=== PATIENT | female | born 1955 | race Caucasian/White ===

== ENCOUNTER 2017-03-26 11:33 | Emergency (ER) | payer OTHER ==
[2017-03-26 11:34] VITALS: BMI 25.7
[2017-03-26 12:00] VITALS: TEMP 97.9
[2017-03-26] MEDS ORDERED: Sodium Chloride 0.9% 1,000 ML IV SCH (12:45)
[2017-03-26 13:10] LABS: BASO # 0.01 K/mm3 (0.0-2.0); BASO % 0.2 % (0.0-3.0); EOS # 0.2 (0.0-0.7); EOS % 3.1 % (1.5-5.0); GRAN # 2.53 (1.4-6.5); GRAN % 45.4 % (50.0-68.0); HEMOGLOBIN 13.1 g/dL (12.0-16.0); LYMPH # 2.2 (1.2-3.4); LYMPH % 38.7 % (22.0-35.0); MEAN CELL VOLUME 96.6 fl (80.0-105.0); MEAN CORPUSCULAR HEMOGLOBIN 32.2 pg (25.0-35.0); MEAN CORPUSCULAR HGB CONC 33.3 g/dl (31.0-37.0); MEAN PLATELET VOLUME 11.3 fl (7.0-11.0); MONO # 0.7 (0.1-0.6); MONO % 12.6 % (1.0-6.0); RBC 4.07 10^6/uL (3.5-6.1); RED CELL DISTRIBUTION WIDTH 13.4 % (11.5-14.5); WHITE BLOOD COUNT 5.6 10^3/ul (4.5-11.0)
[2017-03-26 13:15] LABS: ALB/GLOB RATIO 1.3 (1.1-1.8); ALBUMIN 4.2 g/dL (3.0-4.8); ALT/SGPT 48 U/L (7-56); AST/SGOT 41 U/L (14-36); BLOOD UREA NITROGEN 20 mg/dL (7-21); CALCIUM 9.5 mg/dL (8.4-10.5); GFR AFRICAN-AMERICAN > 60; GFR NON-AFRICAN AMERICAN > 60
[2017-03-26 13:26] LABS: INR 0.97 (0.93-1.08); PARTIAL THROMBOPLASTIN TIME 25.6 Seconds (25.1-36.5); PROTHROMBIN TIME 11.1 SECONDS (9.4-12.5)
--- NOTE | 2017-03-26 13:52 | ED PDOC ---
Arrival/HPI - General Chief Complaint: GI Problem Time Seen by Provider: 03/26/17 12:32 Historian: Patient - History of Present Illness Narrative History of Present Illness (Text): 03/26/17 12:35 A 62 year old female presents to the emergency department complaining of two episodes of bloody stools this morning and dizziness. Patient saw Dr. Barney three years ago, who stated patient has hemorrhoids and had suppository treatment. Patient never had blood transfusions in the past. Reports abdominal pain but denies any chest pain, shortness of breath urinary symptoms or any other complaints at this time. Symptom Onset: Sudden Symptom Course: Unchanged Activities at Onset: Rest Context: Home Past Medical History - Provider Review Nursing Documentation Reviewed: Yes - Cardiac Hx Cardiac Disorders: Yes - Pulmonary Hx Respiratory Disorders: No - Neurological Hx Neurological Disorder: No Hx Paralysis: No - HEENT Hx HEENT Disorder: No - Renal Hx Renal Disorder: No - Endocrine/Metabolic Hx Endocrine Disorders: No - Hematological/Oncological Hx Blood Disorders: Yes Hx Blood Transfusions: Yes (WITH ECTOPIC 1982) - Musculoskeletal/Rheumatological Hx Musculoskeletal Disorders: No - Gastrointestinal Hx Gastrointestinal Disorders: Yes Hx Gastroesophageal Reflux: Yes - Genitourinary/Gynecological Hx Genitourinary Disorders: No - Psychiatric Hx Psychophysiologic Disorder: No Hx Emotional Abuse: No Hx Physical Abuse: No Hx Substance Use: No - Surgical History Other/Comment: ECTOPIC - Anesthesia Hx Anesthesia Reactions: (VOMITING) - Suicidal Assessment Feels Threatened In Home Enviroment: No Family/Social History - Physician Review Nursing Documentation Reviewed: Yes Family/Social History: No Known Family HX Smoking Status: Never Smoked Hx Alcohol Use: Yes (SOCIAL- WINE) Hx Substance Use: No Allergies/Home Meds Allergies/Adverse Reactions: Allergies No Known Allergies Allergy (Verified 03/26/17 11:53) Home Medications: Home Meds Medication Instructions Recorded Confirmed Cholecalciferol (Vitamin D3) 50,000 units PO WED 01/20/16 03/26/17 [Vitamin D3] Rosuvastatin Calcium [Crestor] 10 mg PO DAILY 01/20/16 03/26/17 Dexlansoprazole [Dexilant] 30 mg PO DAILY 03/26/17 03/26/17 Review of Systems - Physician Review All systems were reviewed & negative as marked: Yes - Review of Systems Respiratory: absent: SOB Cardiovascular: absent: Chest Pain Gastrointestinal: Abdominal Pain, Stool Changes (bloody stools) Genitourinary Female: absent: Dysuria, Frequency, Hematuria Neurological: Dizziness Physical Exam - Physical Exam Narrative Physical Exam (Text): 03/26/17 13:51 Head: Atraumatic. Normocephalic. Eyes: PERRL. EOMI. Conjunctivae are not pale. ENT: Mucous membranes are moist and intact. Oropharynx is clear and symmetric. Neck: Supple. Full ROM. No JVD. No lymphadenopathy. Cardiovascular: Regular rate. Regular rhythm. No murmurs, rubs, or gallops. Distal pulses are 2+ and symmetric. Pulmonary/Chest: No evidence of respiratory distress. Clear to auscultation bilaterally. No wheezing, rales or rhonchi. Abdominal: mild RUQ abdominal and periumbilical tenderness to palpation Rectal: (scribe Belqes cover stripper present) small external hemorrhoid, nonthrombosed; brown stool, faintly heme positive Back: No CVA tenderness. Extremities: No edema. No cyanosis. No clubbing. Full range of motion in all extremities. No calf tenderness. Skin: Skin is warm and dry. No petechiae. No purpura. Neurological: Alert, awake, and oriented to person, place, time, and situation. Normal speech. Psychiatric: Good eye contact. Normal interaction, affect, and behavior. Vital Signs Reviewed: Yes Vital Signs Temp Pulse Resp BP Pulse Ox 03/26/17 15:01 78 18 128/67 99 03/26/17 11:59 97.9 F 69 16 119/77 98 Temperature: Afebrile Blood Pressure: Normal Pulse: Regular Respiratory Rate: Normal Appearance: Positive for: Well-Appearing, Non-Toxic, Comfortable Pain Distress: None Mental Status: Positive for: Alert and Oriented X 3 Medical Decision Making ED Course and Treatment: 03/26/17 13:51 Impression: A 62 year old female with two episodes of bloody stool, abdominal pain and dizziness. Plan: -- labs -- Pepcid, IV fluids -- Reassess and disposition Progress Notes: No active bleeding noted with serial exams in ED. Hgb unremarkable. Not orthostatic. No pain or discomfort. Stool at home described as BRIGHT, suggests lower gi. As no further bleeding and cv stable with unremarkable Hgb, will d/c with follow -up with her PMD and gi physician for further evaluation. 03/26/17 14:45 Patient had bowel movement in emergency department, non bloody. 03/26/17 23:26 - Lab Interpretations Lab Results: 03/26/17 12:20 03/26/17 12:20 Lab Results 03/26/17 12:20: Blood Type O POSITIVE, Antibody Screen Negative, BBK History Checked No verified bt 03/26/17 12:20: Sodium 142, Potassium 4.2, Chloride 105, Carbon Dioxide 28, Anion Gap 13, BUN 20, Creatinine 0.7, Est GFR ( Amer) > 60, Est GFR (Non- Af Amer) > 60, Random Glucose 91, Calcium 9.5, Total Bilirubin 0.4, AST 41 H, ALT 48, Alkaline Phosphatase 202 H, Total Protein 7.4, Albumin 4.2, Globulin 3.2 , Albumin/Globulin Ratio 1.3 03/26/17 12:20: PT 11.1, INR 0.97, APTT 25.6 03/26/17 12:20: WBC 5.6, RBC 4.07, Hgb 13.1, Hct 39.3, MCV 96.6, MCH 32.2, MCHC 33.3, RDW 13.4, Plt Count 266, MPV 11.3 H, Gran % 45.4 L, Lymph % (Auto) 38.7 H , Crane % (Auto) 12.6 H, Eos % (Auto) 3.1, Baso % (Auto) 0.2, Gran # 2.53, Lymph # (Auto) 2.2, Crane # (Auto) 0.7 H, Eos # (Auto) 0.2, Baso # (Auto) 0.01 I have reviewed the lab results: Yes - Medication Orders Current Medication Orders: Discontinued Medications Famotidine (Pepcid) 20 mg IVP STAT STA Stop: 03/26/17 12:43 Last Admin: 03/26/17 13:12 Dose: 20 mg IVP Administration Document 03/26/17 13:12 GMD (Rec: 03/26/17 13:12 GMD [facility]) Charges for Administration # of IVP Administrations 1 Sodium Chloride (Sodium Chloride 0.9%) 1,000 mls @ 100 mls/hr IV .Q10H [facility] Last Admin: 02/09/18 13:06 Dose: 100 mls/hr eMAR Start Stop Document 03/26/17 13:06 GMD (Rec: 03/26/17 13:07 GMD [facility] [place] Intravenous Solution Start Date 03/26/17 Start Time 13:07 - Scribe Statement The provider has reviewed the documentation as recorded by the Eric Gong Provider Scribe Attestation: All medical record entries made by the Scribe were at my direction and personally dictated by me. I have reviewed the chart and agree that the record accurately reflects my personal performance of the history, physical exam, medical decision making, and the department course for this patient. I have also personally directed, reviewed, and agree with the discharge instructions and disposition. Disposition/Present on Arrival - Present on Arrival Any Indicators Present on Arrival: No History of DVT/PE: No History of Uncontrolled Diabetes: No Urinary Catheter: No History of Decub. Ulcer: No History Surgical Site Infection Following: None - Disposition Have Diagnosis and Disposition been Completed?: Yes Diagnosis: Rectal bleeding Disposition: HOME/ ROUTINE Disposition Time: 15:00 Patient Plan: Discharge Condition: GOOD Discharge Instructions (ExitCare): Rectal Bleeding (ED) Additional Instructions: For any return of bleeding, any abdominal pain, any lightheadedness or dizziness , any dark or bloody urine or stool, any bruising, any persistent or worsening of any symptoms, get rechecked. Follow-up with Dr. Barney in 2-3 days, return to ER immediately for any return of persistence of any symptoms. Prescriptions: Hydrocortisone [Anusol-HC] 25 mg RC DAILY PRN #3 sup PRN Reason: Hemorrhoids Polyethylene Glycol 3350 [Miralax] 17 gm PO DAILY #7 ml Referrals: Biju Conley MD [Primary Care Provider] - Follow up with primary Jazmyn Barney MD [Medical Doctor] - Follow up with primary Forms: tibdit (Telugu)
[2017-03-26 15:02] VITALS: BP 128/67; PULSE 78; RESP 18; O2SAT 99
== END 2017-03-26 15:19 | disposition home or self-care (01) ==
LOC: ED 11:33
DX: K62.5 Hemorrhage of anus and rectum (principal)
CPT/HCPCS: 80053; 85025; 85610; 85730; 86850; 86900; 96374; 99285; J7040

== ENCOUNTER 2017-04-07 13:27 | Day surgery (SDC) | payer OTHER ==
[2017-04-07 13:55] LABS: BASO # 0.01 K/mm3 (0.0-2.0); BASO % 0.2 % (0.0-3.0); EOS # 0.1 (0.0-0.7); EOS % 2.4 % (1.5-5.0); GRAN # 2.21 (1.4-6.5); GRAN % 41.1 % (50.0-68.0); HEMOGLOBIN 13.7 g/dL (12.0-16.0); LYMPH # 2.5 (1.2-3.4); LYMPH % 47.2 % (22.0-35.0); MEAN CELL VOLUME 95.3 fl (80.0-105.0); MEAN CORPUSCULAR HEMOGLOBIN 31.9 pg (25.0-35.0); MEAN CORPUSCULAR HGB CONC 33.5 g/dl (31.0-37.0); MONO # 0.5 (0.1-0.6); MONO % 9.1 % (1.0-6.0); RBC 4.29 10^6/uL (3.5-6.1); RED CELL DISTRIBUTION WIDTH 13.7 % (11.5-14.5); WHITE BLOOD COUNT 5.4 10^3/ul (4.5-11.0)
[2017-04-07 14:02] LABS: ALB/GLOB RATIO 1.3 (1.1-1.8); ALBUMIN 4.7 g/dL (3.0-4.8); ALT/SGPT 57 U/L (7-56); AMYLASE 66 U/L (35-125); AST/SGOT 49 U/L (14-36); BLOOD UREA NITROGEN 22 mg/dL (7-21); CALCIUM 9.7 mg/dL (8.4-10.5); GAMMA GLUTAMYL TRANSPEPTIDASE 58 U/L (8-78); GFR AFRICAN-AMERICAN > 60; GFR NON-AFRICAN AMERICAN > 60; LIPASE 83 U/L (23-300)
[2017-04-07 14:13] LABS: INR 0.99 (0.93-1.08); PARTIAL THROMBOPLASTIN TIME 27.1 Seconds (25.1-36.5); PROTHROMBIN TIME 11.4 SECONDS (9.4-12.5)
[2017-04-07] MEDS ORDERED: Midazolam 2 MG/2 ML VIAL ONE ×2 (15:04→15:05)
[2017-04-07] MEDS ORDERED: Propofol 10 mg/ml Inj (20 ML) ONE ×3 (15:04→16:08)
[2017-04-07] MEDS ORDERED: Sodium Chloride 0.9% 1,000 ML IV SCH (16:30)
[2017-04-07 17:13] VITALS: BP 104/65; PULSE 71; RESP 16; TEMP 97.7; O2SAT 98
== END 2017-04-07 17:45 | disposition home or self-care (01) ==
LOC: ENDO 13:27
PROVIDERS: ATTEND Internal Medicine Gastroenterology
DX: K29.50 Unspecified chronic gastritis without bleeding (principal); K44.9 Diaphragmatic hernia without obstruction or gangrene
CPT/HCPCS: 36415; 43237; 43239; 80053; 82150; 82977; 83690; 85025; 85610; 85730; 88305; 88312; 88342; J2001; J2250; J2704; J7040

== ENCOUNTER 2018-04-11 10:18 | Day surgery (SDC) | payer OTHER | END 2018-04-11 13:09 | disposition home or self-care (01) | LOC: ENDO 10:18 | DX: K62.1 Rectal polyp (principal); K64.0 First degree hemorrhoids; K57.30 Diverticulosis of large intestine without perforation or abscess without bleeding; K62.5 Hemorrhage of anus and rectum; R94.5 Abnormal results of liver function studies ==